=== PATIENT | male | born 1985 | race Caucasian/White ===

== ENCOUNTER 2023-04-13 13:36 | Emergency (ER) | payer SELFPAY ==
[2023-04-13] VITALS (9 sets, daily range): BP systolic 113–147; BP diastolic 46–94; PULSE 50–82; RESP 18; TEMP 36.5; O2SAT 96–100; BMI 19.3
--- NOTE | 2023-04-13 13:48 | HMH.EDGENADL ---
Discharge Plan Disposition Chief Complaint: Wound/Laceration Referrals Follow up/Referrals: Provider,Referral, [Primary Care Provider] - See instructions Clinical Impressions Clinical Impression: Laceration of thumb, Open wound of right thumb with tendon involvement, Open fracture shaft of metacarpal of thumb Instructions Patient Instructions: DI for Laceration Repair Discharge ED Provider: Christy Gordon General Adult HPI General Chief complaint: Wound/Laceration Stated complaint: [id number], lac on Rt hand Time Seen by Provider: 04/13/23 13:45 History of Present Illness HPI narrative: Patient is a 37-year-old male presents today with a right thumb injury after a circular saw injury to him. He is not exactly sure how it happened but was working with it and it jumped and struck him on the dorsal aspect of the proximal phalanx. He is not up-to-date on tetanus. States is always very clean no questionable contamination but did have some wood on it. He has full flexion and extension and sensation at the moment. Related Data Allergies Allergy/AdvReac Type Severity Reaction Status Date / Time No Known Allergies Allergy Verified 04/13/23 14:11 [facility] Disclaimer: The information contained in this section may have been updated after the patient was seen, as this information can be updated by other users. Social History Smoking Status: Never smoker alcohol intake: never current occupational status: other Travel in the last 8 weeks: None ROS Obtained: Yes All systems reviewed & no additional complaints except as documented Physical Exam General General appearance: alert Respiratory Respiratory exam: Present normal lung sounds bilaterally Cardiovascular Cardiovascular exam: Absent tachycardia Extremities Exam Extremities exam: Present other (There is a 4 cm horizontally oriented laceration at the base of the thumb overlying the first metacarpal on the right hand he has normal flexion and extension at the proximal distal phalanx neurovascular intact distally as well with normal sensation) Expanded Upper Extremity Exam Right: Hand L/R back image: 1. laceration Neurological Exam Neurological exam: Present alert Medical Decision Making Sai Inquiry Pt receiving controlled substance: No Vital Signs: 04/13/23 13:37 04/13/23 14:00 Temperature 97.7 F Temperature Source Oral Pulse Rate 50 L Pulse Rate [Left Radial] 54 L Respiratory Rate 18 Blood Pressure 113/46 L Blood Pressure [Right Arm] 147/93 H Blood Pressure Mean [Right Arm] 111 Blood Pressure Source [Right Arm] Automatic Cuff Blood Pressure Position [Right Arm] Sitting 02 Sat by Pulse Oximetry 98 98 Oxygen Delivery Method Room Air Orders (Tests/Meds): ED MEDICATIONS Generic Name Dose Route Start Last Admin Trade Name Freq PRN Reason Stop Dose Admin Cefazolin Sodium 2 gm/ Sodium 100 mls @ 200 mls/hr 04/13/23 14:07 Chloride IV 04/13/23 14:36 ONCE ONE Discontinued Medications Generic Name Dose Route Start Last Admin Trade Name Freq PRN Reason Stop Dose Admin Tetanus/Reduced Diphtheria/Acell Pertussis 0.5 ml 04/13/23 13:49 Tet/Diphth/Pert-Adult 0.5ml Syringe IM 04/13/23 13:50 .ONCE ONE ORDERS Category Date Time Status Hand XR right minimum 3 views [XR hand RT min 3V] Stat Exams 04/13/23 13:49 Taken Medical Decision Narrative: 37-year-old with a horizontal laceration to the right thumb on the dorsal aspect overlying the first metacarpal. Appears to have normal extension flexion and neurovascular exam. We will examine more closely once I get them full anesthetized and irrigated. X-ray performed I personally interpreted this which shows cortical abnormality and bone fragments consistent with an open fracture. 2 g of Ancef were given. Wound was irrigated. Patient has significant difficulty with extension particular with any type of abduction given
--- NOTE | 2023-04-13 13:49 | XR_ITS ---
FINAL REPORT CLINICAL HISTORY: saw injury to thumb FINDINGS: Right hand Three views were obtained. There is a comminuted fracture of the distal aspect of the 1st metacarpal. Soft tissue defect is seen in this region. There is also a chronic 5th metacarpal fracture. The joint spaces appear normal. IMPRESSION: Comminuted fracture of the 1st metacarpal. Reviewed, Interpreted and Dictated by Moo Soltiario III, MD Transcribed by Sosa Baer Authenticated and . [facility]
--- NOTE | 2023-04-13 14:20 | PC.NURSE ---
call rad to burn disk and power share images
--- NOTE | 2023-04-13 14:26 | PC.NURSE ---
Called [facility] transfer center per ER Doctor to consult with the transfer doctor and possibly hand surgeon also. Advised they would call us back
--- NOTE | 2023-04-13 14:31 | PC.NURSE ---
[facility] called back to speak with ER Doctor about this pt.
--- NOTE | 2023-04-13 15:01 | PC.NURSE ---
transfer center called back at this time, states their hand surgeon is in a procedure and is stating they will call back in approx [address] Gordon
--- NOTE | 2023-04-13 15:19 | PC.NURSE ---
pt called out states he is having stomach pain no he has became restless in the bed,LATHA Kunz aware of pt complaint,, she is going to speak with about situation ,call light at bs
--- NOTE | 2023-04-13 15:46 | PC.NURSE ---
Dr. Ann speaking with at this time
--- NOTE | 2023-04-13 17:40 | PC.NURSE ---
Dr. Ann at [facility]
== END 2023-04-13 18:59 | disposition home or self-care (01) ==
PROVIDERS: Emergency Provider Emergency Medicine
DX: S61.411A Laceration without foreign body of right hand, initial encounter (principal)
CPT/HCPCS: 73130; 90715; 99283; J0690; J2405